=== PATIENT | female | born 1985 | race Caucasian/White ===

== ENCOUNTER 2022-01-13 20:27 | Emergency (ER) | payer MEDICAID, OTHER ==
[2022-01-13 21:38] LABS: Anion Gap 15 mmol/L (10-20); BUN (Urea Nitrogen) 18 mg/dL (7.0-18.7); Calc. Creatinine Clearance 0 mL/min (70-130); Calcium 9.2 mg/dL (7.8-10.44); Carbon Dioxide 24 mmol/L (22-29); Chloride 106 mmol/L (98-107); Estimated GFR 102; Glucose 94 mg/dL (70-105); Potassium 4.2 mmol/L (3.5-5.1); Sodium 141 mmol/L (136-145)
[2022-01-13 22:04] LABS: Band 3 % (5-11); Eosinophils 6 % (0-10); Lymphocytes 17 % (21-51); MDiff Complete? YES; Mean Corpuscular HGB CONC 31.8 g/dL (32.0-36.0); Mean Corpuscular Hemoglobin 28.9 pg (27.0-31.0); Mean Corpuscular Volume 90.7 fL (78.0-98.0); Mean Platelet Volume 11.1 fL (7.4-10.4); Monocytes 5 % (0-10); Neutrophil 69 % (42-75); Platelet Count 163 thou/uL (130-400); RBC Distribution Width 12.4 % (11.5-14.5); RBC Morphology Normal
[2022-01-13] MEDS ORDERED: Ketorolac Tromethamine 30 MG/ML VIAL ONE (22:18)
[2022-01-13] MEDS ORDERED: Penicillin V Potassium 250 MG TAB ONE (22:18)
[2022-01-13 22:34] LABS: Bilirubin Negative (Negative); Blood, Urine Large (Negative); Clarity Clear (Clear); Glucose, Urine (Dipstick) Negative (Negative); Ketone, Urine Negative (Negative); Leukocyte Negative (Negative); Nitrite Negative (Negative); Protein, Urine (Dipstick) Negative (Neg-Trace); Urobilinogen 0.2 mg/dL (Less than 2)
[2022-01-13 22:53] LABS: Transitional Epithelial 0-3 HPF (None Seen); WBC/HPF 0-3 HPF (0-3)
[2022-01-13 22:55] LABS: Bacteria/HPF Rare-Few HPF (None Seen)
== END 2022-01-13 23:05 | disposition home or self-care (01) ==
LOC: MADERS 20:27
DX: M79.10 Myalgia, unspecified site (principal); K02.9 Dental caries, unspecified; I11.0 Hypertensive heart disease with heart failure; I50.9 Heart failure, unspecified; E03.9 Hypothyroidism, unspecified; Z87.891 Personal history of nicotine dependence; Z79.899 Other long term (current) drug therapy
CPT/HCPCS: 71045; 80048; 81003; 81015; 83880; 85025; 93005; 96374; J1885